=== PATIENT | female | born 1970 | race Caucasian/White ===

== ENCOUNTER 2016-06-10 19:27 | Emergency (ER) ==
--- NOTE | 2016-06-10 22:07 | PROVIDER DOCUMENTATION ---
HPI-Musculoskeletal Pain/Inj - GENERAL Chief Complaint: Hip Pain Stated Complaint: HIP PAIN Time Seen by Provider: 06/10/16 21:57 Source: patient - HX OF PRESENT ILLNESS-MUSKULOSKELTAL Nature of Presenting Problem: 46 Y/O F presents to ED with Extremity pain. Pt states that she has lower back pain wit radiation to hip down th eleft leg. Pt states it hurts to sit and has limited walking due to pain. Pt states muscle spasms sometimes with movement. States it started 10 days ago, but it was just soreness with extreme increase today. Pt states taking OTC with prescribed meds. Pt states that she was squatting down painting her cabinets. Quality of Pain: reports: aching Severity in ED: severe Onset/Duration: other (10 days ago) Timing: still present, getting worse Any recent injury?: No Locality of Occurance: Home Similar Symptoms Previously?: No Recently seen or treated by another doctor?: No - BACK & NECK PAIN/INJURY Back/Neck Pain Location: reports: sacrum Back/Neck Pain Radiation: reports: Lower Legs Context / Method of Injury: reports: unknown Associated Symptoms: reports: lower back pain. denies: fever - HIP/PELVIS PAIN/INJURY Hip Pain Location: reports: hip (L) Pain Radiation: reports: abdomen Context / Method of Injury: reports: unknown Associated Symptoms: reports: muscle spasms Review of Systems - Adult - REVIEW OF SYSTEMS - ADULT Constitutional: denies: chills, fever Eyes: reports: no symptoms reported Ears, Nose, Mouth & Throat: reports: no symptoms reported Cardiovascular: reports: no symptoms reported Respiratory: denies: cough, shortness of breath Gastrointestinal: denies: abdominal pain, diarrhea, nausea, vomiting Genitourinary: reports: no symptoms reported Musculoskeletal: reports: back pain, joint pain Integumentary: reports: no symptoms reported Neurological: denies: dizziness/vertigo, loss of balance Psychiatric: reports: no symptoms reported Endocrine: reports: no symptoms reported Hematologic/Lymphatic: reports: no symptoms reported Allergic/Immunologic: reports: no symptoms reported All Other Systems: Reviewed and Negative Past History - Adult - PAST MEDICAL HISTORY-ADULT Review of Records: reports: Old Records Reviewed, Nursing Assessment Review, Medications Reviewed, Social history reviewed & non-contributory. Major Childhood Illnesses: reports: denies history Cardiovascular: reports: denies history Respiratory: reports: denies history Gastrointestinal: reports: GERD Obstetrical/Gynecological: reports: denies history Genitourinary: reports: kidney stones Musculoskeletal: reports: denies history Neurological: reports: headaches/migraines Psychiatric: reports: anxiety, depression Endocrine/Immune: reports: denies history Other Conditions: reports: denies history - PRIOR SURGERIES/PROCEDURES Surgical/Procedure History: reports: hysterectomy - PRIOR HOSPITALIZATIONS Prior Hospitalizations: reports: for other non-related - IMMUNIZATION STATUS Childhood Immunizations: See Nurse Assessment Flu Vaccine: See Nurse Assessment - FAMILY HISTORY Family History: reviewed, not pertinent, other (seizures) - SOCIAL HISTORY Smoking: quit greater than 1 year Alcohol Use Frequency: rarely Living Situation: family Physical Exam-Injury Related - Physical Exam-Injury Related Initial Vital Signs Reviewed: Yes General Appearance: alert, moderate distress. negative: appears well Eyes: PERRL/EOMI, pink conjunctivae, fundi clear, no AV nicking Head, Ears, Nose, Mouth & Throat: normocephalic/atraumatic, moist mucous membranes, normal ENT inspection, TMs normal, pharynx normal Neck: non-tender, full range of motion, supple, normal inspection Respiratory: chest non-tender, lungs clear, normal breath sounds Cardiovascular: normal peripheral pulses, regular rate, rhythm Abdominal Exam: normal bowel sounds, non tender, soft Back Exam: CVA tenderness (left side), decreased range of motion Extremity: tenderness, other (tested pt, hip flex, rotation and abduction. normal on right side but positive abduction pain on left side.). 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, grossly normal Psych/Mental Status: normal mood/affect, normal thought content, normal thought process, oriented x 3 Progress - PLAN OF CARE/RESULTS Progress/Plan/Lab Results: Orders Category Date Time Status PELVIS [RAD] Stat Exams 06/10/16 22:00 Taken Vital Signs - 24 hr 06/10/16 20:09 Temperature 98.5 F Pulse Rate 96 H Respiratory 18 Rate Blood Pressure 124/80 O2 Sat by Pulse 97 Oximetry - XRAY 1 XRAY Study: Pelvis Impression: Normal XRAY Interpretation: NAD, No fx Departure - Departure Time of Disposition Order: 22:16 DIAGNOSIS: Sacro-iliac pain Disposition: HOME 01 Certified Medical Emergency: Emergent Condition: Stable Additional Instructions: ED Follow Up Instructions: You have been treated by a care provider in the Emergency Department. These instructions are being provided to you so you can have an understanding of how to care for yourself upon discharge. Upon discharge from the Emergency Department, you are responsible for making arrangements for follow-up care by a physician of your choice. Take all prescribed medications as directed. Return to the Emergency Department immediately for any new or worsening symptoms. You may call the Physician Referral phone number at [phone] to obtain a list of Physicians who are taking new patients. Attestation - Scribe Verification/Attestation Scribe:: Doris Baer Acting as Scribe for:: Issa Hartman Scribe documention review:: This chart was documented by a scribe and accurately reflects the service the provider performed and the decisions made by the provider.
[2016-06-10] MEDS ORDERED: PREDNISONE PO ONE (22:27)
[2016-06-10] MEDS ORDERED: ULTRAM PO ONE (22:27)
[2016-06-10] MEDS ORDERED: PREDNISONE ONE (22:29)
[2016-06-10] MEDS ORDERED: ULTRAM ONE (22:30)
[2016-06-10 22:39] VITALS: BP 117/74
--- NOTE | 2016-06-11 06:37 | Diag Imaging Result Document ---
PROCEDURE NAME: PELVIS - 06/10/2016 PELVIS SINGLE VIEW: FINDINGS: No fracture. No dislocation. No significant arthritic changes. No separation of the pubic symphysis. The sacroiliac joints are normal. IMPRESSION: No abnormality.
== END 2016-06-10 22:39 | disposition home or self-care (01) ==
LOC: P.ED 19:27
DX: M53.3 Sacrococcygeal disorders, not elsewhere classified (principal); M54.5 Low back pain; M25.552 Pain in left hip; M79.605 Pain in left leg; M62.838 Other muscle spasm; R10.9 Unspecified abdominal pain; F41.9 Anxiety disorder, unspecified; F32.9 Major depressive disorder, single episode, unspecified; Z79.899 Other long term (current) drug therapy; Z87.442 Personal history of urinary calculi
CPT/HCPCS: 72170; J7512

== ENCOUNTER 2016-06-21 22:45 | Emergency (ER) ==
[2016-06-21] MEDS ORDERED: TORADOL IM ONE (23:07)
[2016-06-21] MEDS ORDERED: DECADRON IM ONE (23:10)
[2016-06-22] MEDS ORDERED: ROBAXIN PO ONE (00:10)
[2016-06-22] MEDS ORDERED: NORCO-10 PO ONE (00:11)
--- NOTE | 2016-06-22 00:17 | PROVIDER DOCUMENTATION ---
HPI-Musculoskeletal Pain/Inj - GENERAL Chief Complaint: Back Pain Stated Complaint: "BULGING DISK IN LOWER BACK" Time Seen by Provider: 06/21/16 23:06 - HX OF PRESENT ILLNESS-MUSKULOSKELTAL Nature of Presenting Problem: Pt has a known bulging disc in the right lumbar that she recently had an MRI that diagnosed. She has been taking prednisone. She is about to start Physical therapy. Today she started having increased pain that radiates into her hip and buttocks. Review of Systems - Adult - REVIEW OF SYSTEMS - ADULT Constitutional: reports: no symptoms reported. denies: chills, fever, night sweats, weight gain, weight loss, other Eyes: reports: no symptoms reported. denies: discharge, dry eyes, decreased vision, blurred vision, double vision, eye pain, redness Ears, Nose, Mouth & Throat: reports: no symptoms reported. denies: ear discharge, ear pain, tinnitus, epistaxis, nose pain, loose teeth, mouth/dental pain, hoarseness, throat swelling Cardiovascular: reports: no symptoms reported. denies: chest pain, edema, heart murmur, irregular heart rate, palpitations, poor circulation, PND, syncope Respiratory: reports: no symptoms reported. denies: chronic cough, cough, dyspnea on exertion, excessive sputum production, pleurisy, shortness of breath , wheezing Gastrointestinal: reports: no symptoms reported. denies: abdominal pain, constipation, diarrhea, nausea, poor appetite, rectal bleeding, vomiting Genitourinary: reports: no symptoms reported. denies: dysuria, discharge, frequency, flank pain, hematuria, hesitency, urinary retention, urgency Musculoskeletal: reports: see HPI, back pain, joint pain. denies: frequent leg cramps, muscle aches, muscle weakness, neck pain Integumentary: reports: no symptoms reported Neurological: reports: no symptoms reported. denies: ataxia, dizziness/vertigo , headache/migraines, loss of balance, paresthesia, slurred speech, syncope, tremors Psychiatric: reports: no symptoms reported. denies: anxiety, anti-depressant use, alcohol/drug dependence, depression, emotional problems, insomnia, suicidal thoughts Endocrine: reports: no symptoms reported. denies: change in skin pigment, excessive sweating, cold intolerance, heat intolerance, increased hunger, increased thirst, polyuria Hematologic/Lymphatic: reports: no symptoms reported. denies: blood clots, easy bruising, lymphedema, swollen lymph nodes, transfusions Allergic/Immunologic: reports: no symptoms reported. denies: allergic reactions , asthma, eczema, frequent infections, hay fever, hives, positive PPD, urticaria All Other Systems: Reviewed and Negative Past History - Adult - PAST MEDICAL HISTORY-ADULT Review of Records: reports: Old Records Reviewed, Nursing Assessment Review, Medications Reviewed, Social history reviewed & non-contributory. Major Childhood Illnesses: reports: denies history Cardiovascular: reports: denies history Respiratory: reports: denies history Gastrointestinal: reports: GERD Obstetrical/Gynecological: reports: denies history Genitourinary: reports: kidney stones Musculoskeletal: reports: denies history Neurological: reports: headaches/migraines Psychiatric: reports: anxiety, depression Endocrine/Immune: reports: denies history Other Conditions: reports: denies history - PRIOR SURGERIES/PROCEDURES Surgical/Procedure History: reports: hysterectomy - PRIOR HOSPITALIZATIONS Prior Hospitalizations: reports: for other non-related - IMMUNIZATION STATUS Childhood Immunizations: See Nurse Assessment Flu Vaccine: See Nurse Assessment - FAMILY HISTORY Family History: reviewed, not pertinent, other (seizures) - SOCIAL HISTORY Smoking: denies Substance Use: none/never Alcohol Use Frequency: never Physical Exam-Injury Related - Physical Exam-Injury Related Initial Vital Signs Reviewed: Yes General Appearance: alert, no apparent distress, moderate distress Eyes: PERRL/EOMI, pink conjunctivae, fundi clear, no AV nicking Head, Ears, Nose, Mouth & Throat: normocephalic/atraumatic, moist mucous membranes, normal ENT inspection Neck: non-tender, full range of motion, supple, normal inspection Respiratory: chest non-tender, lungs clear, normal breath sounds, no pleuratic chest pain, no respiratory distress Cardiovascular: normal peripheral pulses, regular rate, rhythm Chest/Breast: deferred Abdominal Exam: normal bowel sounds, non tender, soft, no organomegaly Back Exam: decreased range of motion, muscle spasm, vertebral tenderness Extremity: non-tender, normal gait, normal inspection, tenderness Integumentary: normal color, warm/dry, blanching 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, grossly normal Psych/Mental Status: normal thought content, normal thought process, oriented x 3, anxious - Glascow Coma Score Best Eye Response ([place]): (4) open spontaneously Best Verbal Response ([place]): (5) oriented Best Motor Response ([place]): (6) obeys commands Progress - PLAN OF CARE/RESULTS Progress/Plan/Lab Results: Orders Category Date Time Status Dexamethasone [Decadron] Med 06/21/16 23:10 Discontinued 10 mg IM NOW ONE Hydrocodone/APAP 10 mg/325 mg [[place]-10] Med 06/22/16 00:11 Discontinued 1 each PO NOW ONE Ketorolac [Toradol] Med 06/21/16 23:07 Discontinued 30 mg IM NOW ONE Methocarbamol [Robaxin] Med 06/22/16 00:10 Discontinued 750 mg PO NOW ONE Vital Signs - 24 hr 06/21/16 22:58 Temperature 98.3 F Pulse Rate 95 H Respiratory 16 Rate Blood Pressure 124/72 O2 Sat by Pulse 99 Oximetry Departure - Departure Time of Disposition Order: 00:21 DIAGNOSIS: Sacro-iliac pain, Sciatic leg pain Disposition: HOME 01 Certified Medical Emergency: Emergent Condition: Good Additional Instructions: ED Follow Up Instructions: You have been treated by a care provider in the Emergency Department. These instructions are being provided to you so you can have an understanding of how to care for yourself upon discharge. Upon discharge from the Emergency Department, you are responsible for making arrangements for follow-up care by a physician of your choice. Take all prescribed medications as directed. Return to the Emergency Department immediately for any new or worsening symptoms. You may call the Physician Referral phone number at [phone] to obtain a list of Physicians who are taking new patients. Prescriptions: Ibuprofen [Motrin] 800 mg PO Q8H PRN PRN #20 tablet PRN Reason: Pain Omeprazole [Prilosec] 40 mg PO DAILY #20 capsule. Attmattation - Physician/ FRIDA Attestation Patient care was provided by Advanced Practice Provider:: Yes Advanced Practice Provider:: Smiley Roldan Advanced Practice Provider documentation review:: The Mid-level provider documentation, treatment plan and medical decision making was reviewed by the physician who agrees with all treatment and medical decision making by the MLP.
[2016-06-22 01:12] VITALS: BP 132/76
== END 2016-06-22 01:10 | disposition home or self-care (01) ==
LOC: ED 22:45
DX: M53.3 Sacrococcygeal disorders, not elsewhere classified (principal); M54.31 Sciatica, right side; M79.604 Pain in right leg; M54.5 Low back pain; M25.551 Pain in right hip; M79.1 Myalgia; Z87.442 Personal history of urinary calculi
CPT/HCPCS: 96372; J1885